=== PATIENT | female | born 1995 | race Caucasian/White ===

== ENCOUNTER → 2017-05-05 | Outpatient (CLI) | payer BC | LOC: FIMAGING 13:22 | PROVIDERS: ATTEND Registered Nurse | DX: Z34.02 Encounter for supervision of normal first pregnancy, second trimester (principal); Z3A.19 19 weeks gestation of pregnancy; Z82.79 Family history of other congenital malformations, deformations and chromosomal abnormalities ==

== ENCOUNTER → 2017-06-03 | Outpatient (CLI) | payer BC | LOC: FIMAGING 14:48 | PROVIDERS: ATTEND Registered Nurse | DX: O35.8XX0 Maternal care for other (suspected) fetal abnormality and damage, not applicable or unspecified (principal); Z82.79 Family history of other congenital malformations, deformations and chromosomal abnormalities; Z3A.23 23 weeks gestation of pregnancy ==